=== PATIENT | male | born 1975 | race Caucasian/White ===

== ENCOUNTER → 2018-07-28 | Day surgery (SDC) | payer OTHER ==
[2018-07-27 12:03] VITALS: BMI 32.3
[~2018-07-28] MED LIST: Fentanyl 100 MCG/2 ML VIAL ONE; Hydrocodone-Acetamin 15 ML UDCUP ONE; Lidocaine 1% w/Epinephrine 1:100K 30 ML VIAL ONE; Midazolam HCl 2 mg/2 ml Vial ONE; Ondansetron PF 4 MG/2 ML Vial ONE; Oxymetazoline HCl 0.05% ( 15 ML ) ONE
--- NOTE | 2018-07-28 15:45 | EKG ---
Test Reason : PREOP Blood Pressure : / mmHG Vent. Rate : 048 BPM Atrial Rate : 048 BPM P-R Int : 148 ms QRS Dur : 094 ms QT Int : 404 ms P-R-T Axes : -13 073 038 degrees QTc Int : 360 ms Marked sinus bradycardia Early repolarization Abnormal ECG No previous ECGs available Confirmed by ADAMA GARCIA ([id number]) on 07/28/2018 3:45:07 PM Referred By: KENYA Confirmed By:ADAMA GARCIA
--- NOTE | 2018-07-28 15:59 | OP ---
PREOPERATIVE DIAGNOSES: Chronic tonsillitis and obstructive uvular hypertrophy, sleep disorder breat maggy, obstructive inferior turbinate hypertrophy. POSTOPERATIVE DIAGNOSES: Chronic tonsillitis and obstructive uvular hypertrophy, sleep disorder nik thing, obstructive inferior turbinate hypertrophy. PROCEDURES PERFORMED: 1. Bilateral nasal endoscopy with submucosal resection of inferior turbinates. 2. Tonsillectomy over 12. 3. Uvulectomy. PROCEDURE IN DETAIL: After consent was obtained, the patient was identified, brought to the operatin g room, and placed on the operating table in the supine position. General endotracheal anesthesia an d intravenous access was obtained and we proceeded with positioning the patient for oropharyngeal konrad see. Oropharyngeal exposure was obtained with a Pedrito-Zeb mouth gag after a head drape was placed and secured with a towel clip. The Pedrito-Zeb mouth gag was then suspended from the [place] tray and palatal elevation was achieved with a red rubber catheter. The right tonsil was addressed first. We used a curved Allis to grasp the tonsil and retract it medially as an anterior pillar incision was m ozzy with a #12 blade. The retrotonsillar fascial plane was then established and blunt dissection was performed with the suction cautery. Blood vessels were anticipated, identified, and cauterized as t hey were encountered. Ultimately, dissection was carried to the posterior tonsillar pillar mucosa wh ich was incised hemostatically, as well as the base of tongue connection. With the 0-degree endoscope, the patient underwent systematic nasal endoscopy. There were no suspici ous internasal masses or lesions identified. We then focused our attention to the osteomeatal comple x region under the middle turbinate. The inferior turbinates were visualized with a 0-degree endoscope and outfractured with a Ulises eleva tor. The inferior medial aspect was cauterized with the electrocautery. Hemostasis was obtained . After adequate airway was established, we turned our attention to the contralateral side and used a s imilar procedure. Again, a [place] elevator was used to outfracture inferior turbinates under endoscop ic visualization. With a suction cautery, the free inferior medial aspect was cauterized under direc t visualization along the length of the inferior turbinate. The tonsil was then passed off as a specimen and bleeding points within the tonsillar bed were cauter ized under direct visualization. We subsequently turned our attention to the contralateral side, whe re using a similar technique, a near identical procedure was performed. Again, the tonsil was graspe d and retracted medially with a curved Allis as an anterior pillar incision was made with a #12 blade . The retrotonsillar fascial plane was established and while the anterior pillar was retracted media lly, the hemostatic blunt dissection of the tonsil with a suction cautery was performed with blood ve ssels anticipated, identified, and cauterized as they were encountered. Again, dissection continued to the base of tongue and posterior tonsillar pillar mucosa which was incised in a hemostatic fashion . The tonsillar beds were then carefully inspected and bleeding points were identified and cauterize d with a suction cautery. After this portion of the procedure, hemostasis was completely obtained. The patient's oral cavity was copiously irrigated with iced saline and subsequently suctioned. We th en used the red rubber catheter to suction the gastric contents. The uvula was then grasped and retracted inferiorly as vertical incisions were made on either side of the insertion of the uvula into the soft palate. A crescentic portion of soft palate was then remove d on each side of the relaxing incision, and the uvula was transected at the site where it normally w ould have interfaced with the soft palate. The anterior and posterior aspect of the wound was then re approximated with interrupted chromic sutures. The patient was then awakened, extubated, and transfer red to recovery where patient remained in stable condition prior to discharge home. At this point, we then turned our attention to the contralateral side and proceeded with endoscopic s inus surgery. At the completion of the case, [place] keel splints were placed in the ethmoid cavities after the ethmoi dectomy. There were no complications. The patient tolerated the procedure well and was discharged t o the recovery room in stable condition prior to [facility] Prescriptions for pain medication and antibiotics were provided. The patient received intramuscular Depo-Medrol during the case.
== END ==
LOC: SDC 11:02
PROVIDERS: ATTEND Specialist
PROC: 0C5PXZZ Destruction of Tonsils, External Approach (ICD-10-PCS; principal; 2018-07-28)
PROC: 095L8ZZ Destruction of Nasal Turbinate, Via Natural or Artificial Opening Endoscopic (ICD-10-PCS; principal; 2018-07-28)
PROC: 0CBN0ZZ Excision of Uvula, Open Approach (ICD-10-PCS; principal; 2018-07-28)
DX: J35.01 Chronic tonsillitis (principal); G47.33 Obstructive sleep apnea (adult) (pediatric); J34.3 Hypertrophy of nasal turbinates; K13.79 Other lesions of oral mucosa; Z79.899 Other long term (current) drug therapy
CPT/HCPCS: 88304; 93005; 93010; 96374; J0131; J2001; J2250; J2405; J3010